=== PATIENT | female | born 1940 | race American Indian/Alaskan Native ===

== ENCOUNTER 2020-09-13 17:54 | Emergency (ER) | payer MEDICARE ==
[2020-09-13] MEDS ORDERED: DEXTROSE 50% IN WATER (25GM) 50 ML SYRINGE IV ONE (18:11)
--- NOTE | 2020-09-13 18:34 | Emergency Department Report ---
ED CPR HPI - General Stated Complaint: CARDIAC ARREST Time Seen by Provider: 09/13/20 18:24 - History of Present Illness Initial Comments: 80 yo F, history of HTN, pulmonary fibrosis, presents to the ED in cardiac arrest. EMS reports initial call was for difficulty breathing. When they arrived pt was lethargic. Family reported that they had been having trouble getting the patient to eat. Accucheck was done and glucose found to be 44. One amp of D50 was given. They state patient seemed to improve somewhat. She was given an additional amp of D50 after that. Patient was loaded into the ambulance and began to decline. She became bradycardic, so Atropine 0.5 mg was given. Patient then went into asystole and lost pulses. Patient was defibrillated x 1. Medic states they were initially en route to [facility], however, when patient coded, they decided to come to our ED and were unable to all ahead and notify. Prior to ED arrival, ACLS in progress x 10 min. Patient received Epi x 2. MD Complaint: stopped breathing Onset/Timin Place: home Initial Findings in the Field: lethargic Treatments Prior to Arrival: BMV, chest compressions, defribrillated shocks # (1), epinephrine mgs # (2), atropine mgs # (1), glucose (D50 x 2 amps) ED Review of Systems ROS: Stated complaint: CARDIAC ARREST Other details as noted in HPI Comment: Unobtainable due to pts medical conditions ED Physical Exam - General General appearance: obtunded - Head Head exam: Present: atraumatic, normocephalic - Eye Pupils: Present: other (fixed and dilated bilaterally) - ENT ENT exam: Present: other (dark fluid in mouth) - Neck Neck exam: Present: normal inspection - Respiratory Respiratory exam: Present: other (no spontaneous breaths) - Cardiovascular Cardiovascular Exam: Present: other (no palpable pulse) - GI/Abdominal GI/Abdominal exam: Present: soft. Absent: distended - Extremities Exam Extremities exam: Present: normal inspection - Neurological Exam Neurological exam: Present: other (GCS 3) - Skin Skin exam: Present: warm, dry, intact - Intubation Time Out Performed: No Laryngoscope: fiberoptic video scope Size: 3 ET Tube Size: 7.5 Tube Secured Depth (cm): 22 Tube Secured Location: lips Tube Placement Confirmation: visualized tube passing t, equal breath sounds bilat, no breath sounds over epi, confirmation by capnometr Patient Tolerated Procedure: well Intubation Complications: none ED Medical Decision Making - Medical Decision Making 80-year-old female presents to ED in cardiac arrest. ACLS already in progress x10 minutes prior to ED arrival. EMS reports patient in asystole. Patient in asystole upon ED arrival. Patient was intubated by me. Patient was again found to be hypoglycemic so patient was given a total of 2 A of D50. Please see nurses notes for details. Code was run for approximately 30 minutes here in the ED. This in addition to the 10 minutes by EMS prior to ED arrival. Unfortunately we were unable to achieve ROSC. Patient remained in asystole during entire time. Time of was called at 18:20. Critical care attestation.: If time is entered above; I have spent that time in minutes in the direct care of this critically ill patient, excluding procedure time. ED Disposition Clinical Impression: Cardiac arrest Disposition: DC-20 Is pt being admited?: No Condition: Stable Referrals: PRIMARY CARE, [Primary Care Provider] - 3-5 Days
== END 2020-09-13 21:52 ==
LOC: ED 17:54
DX: I46.9 Cardiac arrest, cause unspecified (principal)
CPT/HCPCS: 31500; 82962; 92950